=== PATIENT | female | born 1940 | race Caucasian/White ===

== ENCOUNTER → 2019-07-15 | Outpatient (CLI) | payer MEDICARE, MEDICAID ==
[2019-07-15 15:41] LABS: ALBUMIN 3.8 g/dL (3.4-5.0); ALBUMIN/GLOBULIN RATIO 1.2 (1.0-1.7); CALCIUM 9.1 mg/dL (8.5-10.1); CREATININE 0.6 mg/dL (0.6-1.0); GFR 96.9; POTASSIUM 3.7 mmol/L (3.5-5.1); TOTAL BILIRUBIN 0.6 mg/dL (0.2-1.0); TOTAL PROTEIN 6.9 g/dL (6.4-8.2)
== END | disposition home or self-care (01) ==
LOC: LAB 14:35
PROVIDERS: ATTEND Nurse Practitioner
DX: I71.2 Thoracic aortic aneurysm, without rupture (principal)
CPT/HCPCS: 36415; 80053; 80061

== ENCOUNTER 2020-12-16 21:29 | Emergency (ER) | payer MEDICARE, MEDICAID ==
[~2020-12-16] VITALS: Ht 160 cm; Wt 103.3 kg
--- NOTE | 2020-12-16 21:33 | PHYS DOC ---
Past History Past Medical History: Anxiety, Arthritis, Bronchitis, CAD, Diverticulitis, High Cholesterol, Hypertension, Sciatica Past Surgical History: Lumbar Laminectomy, Other Past Surgical History Bilateral shoulder repairs General Adult HPI: HPI: ".. I got some bad abdomen pain.. and so bad .. I am short of breath.. It down here on Rt... I ve had diverticulosis and diverticulitis in the past.,...I got chest pain.. I just get pain all over.. " Patient is a 80 year old female who presents with above hx and complaints of severe Rt. lower abdomen pain. Pt. denies hx of kidney stones . Has had episodes of diverticulitis. Multiple abdoomen surgeries.. The patient follows with Dr. Sanders. Patient has had Covid Moderna vaccination in October. Patient denies any trauma. Patient denies any specific ill contacts. Patient denies any change in diet or meds. Patient denies any recent travel outside the [place] area. Patient reports had multiple work-ups for her abdomen pain recently with no specific findings. Patient normally follows at [facility]. Review of Systems: Review of Systems: Constitutional: Denies fever or chills Eyes: Denies change in visual acuity HENT: Denies nasal congestion or sore throat Respiratory: Denies cough or shortness of breath Cardiovascular: Complains of epigastric chest pain and ankle edema GI: Complains of epigastric abdominal pain, nausea,. Denies vomiting, bloody stools or diarrhea : Denies dysuria Musculoskeletal: Complains of back pain and generalized joint pain Integument: Denies rash Neurologic: Denies headache, focal weakness or sensory changes Endocrine: Denies polyuria or polydipsia Lymphatic: Denies swollen glands Psychiatric: Denies depression or anxiety Family History: Family History: Noncontributory to presentation Current Medications: Current Meds: See nursing for home meds Allergies: Allergies: No known drug allergies Physical Exam: PE: Constitutional: Reports severe acute distress, non-toxic appearance. [] HENT: Normocephalic, atraumatic, bilateral external ears normal, oropharynx moist, no oral exudates, nose normal. [] Eyes: PERRLA, EOMI, conjunctiva normal, no discharge. [] Neck: Normal range of motion, no tenderness, supple, no stridor. Kyphosis. Cardiovascular:Heart rate irregular rhythm, no murmur [PMI to the left. Monitor shows a sinus rhythm with occasional PAC and PVC. Lungs & Thorax: Bilateral breath sounds equal apex with scattered wheezes on auscultation [] Abdomen: Bowel sounds normal, soft, right lower quadrant tenderness, no masses, no pulsatile masses. Obese. Old surgery scars. Mild rebound right lower quadrant Skin: Warm, dry, no erythema, no rash. Poor turgor. Back: No tenderness, no CVA tenderness. [] Extremities: No tenderness, no cyanosis, no clubbing, ROM intact, no edema. No true psoas sign. Bilateral surgery scars Neurologic: Alert and oriented X 3, moves extremities on request, does have distal sensory, no focal deficits noted. [] Psychologic: Affect anxious, judgement normal, mood normal. [] EKG: EKG: My interpretation EKG shows a sinus rhythm at 81 bpm does have premature atrial contractions, nonspecific contour changes anterior septal region. Abnormal EKG. Time of EKG 2132 hrs. My interpretation EKG #2 shows sinus rhythm at 88 bpm. Does have a PA disease and PVCs and short runs of bigeminy. Abnormal EKG time of this EKG is 00 20 minutes Radiology/Procedures: Radiology/Procedures: [][place] [address] IMAGING REPORT Signed PATIENT: GORDO LITTLE ACCOUNT: [id number] : 1940 LOCATION: ER AGE: 80 SEX: F EXAM STATUS: REG ER ORD. PHYSICIAN: JAMES LEY MD REASON: OMNI 240,30ML PO.RLQ ABD PAIN PROCEDURE: CT ABD PEL W/ORAL CONTRST ONLY INDICATION: Reason: OMNI 240,30ML PO.RLQ ABD PAIN / Spl. Instructions: / History: . COMPARISON: None. TECHNIQUE: Axial CT images obtained through the neck and pelvis without contrast. One or more of the following individualized dose reduction techniques were utilized for this examination: 1. Automated exposure control; 2. Adjustment of the mA and/or kV according to patient size; 3. Use of iterative reconstruction technique. FINDINGS: Coronary artery calcific atherosclerosis. Severe atherosclerosis throughout the abdominal aorta. No perihepatic hemorrhage. Distention of the extrahepatic bile duct. No peripancreatic fluid collection. Spleen unremarkable. Exophytic cystic lesion left kidney measuring 14 mm with adjacent tiny calcification or high density lesion. No hydronephrosis. Urinary bladder is decompressed. Exophytic lesion at the superior pole the right kidney measuring 18 mm which does not measure as entirely as simple cyst. Nonobstructive right renal stone. Colonic diverticulosis. Mild prominence of colon wall but this could be from lack of distention. Appendix is not well seen. Laxity of the anterior abdominal wall near midline with some loops of bowel seen extending between the rectus musculature. Postoperative changes are seen in the anterior abdominal wall at the region. Metallic density structure within the subcutaneous soft tissues at left flank. Degenerative changes spine. Osseous demineralization. Degenerative changes the hips. Grade 1 anterolisthesis of L3 on 4, L4 on 5 and L5 on S1. Posterior fusion changes with pedicle screws and stabilizing rods from L4 hypertrophic changes at the spinous processes. IMPRESSION: * No hydronephrosis. * No evidence of bowel obstruction. * Exophytic lesion of the right kidney which does not have the appearance of simple cyst. Nonemergent ultrasound, CT or MRI renal protocol could further assess for a solid component. * Calcific atherosclerosis. * Hypertrophic changes at the spinous processes. Would correlate for possible causes such as Baastrup. * Dilatation of the common bile duct. This can be a physiologic finding but would correlate with symptoms and lab markers to ensure there is not a pathologic cause such as a distal stricture or stone. Electronically signed by: Sd Montero MD (12/17/2020 1:08 AM) [id number] DICTATED AND SIGNED BY: SD MONTERO MD DATE: 12/17/20 0055 CC: JAMES LEY MD; STANLEY SANDERS MD ~MTH0 IMAGING REPORT Signed PATIENT: GORDO LITTLE ACCOUNT: [id number] : 1940 LOCATION: ER AGE: 80 SEX: F EXAM STATUS: REG ER ORD. PHYSICIAN: JAMES LEY MD REASON: pain PROCEDURE: ACUTE ABDOMEN SERIES Acute Abdominal Series: 12/16/2020 10:24 PM Reason for study: Pain Comparison studies: None. Technique: Frontal view of the chest was obtained along with supine and upright views of the abdomen. Findings: Nonobstructive bowel gas pattern. Mild wall thickening involving the small bowel loops in the left upper abdomen suggestive of jejunal bowel loops. No air fluid levels or free air. The lungs are clear without acute consolidative opacity.. Chronic interstitial changes are present. No pleural effusion or pneumothorax. The cardiac and mediastinal contours are normal. Tortuous thoracic aorta. Visualized osseous structures are intact. Rotator cuff anchors identified along the humeral heads bilaterally. There is S-shaped curvature of the thoracolumbar spine with posterior fusion hardware from L4 through S1. Sacroiliac joints are well aligned. IMPRESSION: 1. Nonobstructed bowel gas pattern. Mild jejunal wall thickening in the left upper quadrant could represent enteritis of infectious/inflammatory etiology. 2. No acute cardiopulmonary findings. Electronically signed by: Conor Lynne MD (12/16/2020 11:22 PM) [facility] DICTATED AND SIGNED BY: CONOR LYNNE MD DATE: 12/16/20 4588 CC: JAMES LEY MD; STANLEY SANDERS MD ~MTH0 0 Heart Score: C/O Chest Pain: Yes HEART Score for Chest Pain: HEART Score for Chest Pain Response (Comments) Value History Moderately Suspicious 1 ECG Nonspecific Repolarizatio 1 Age > 65 2 Risk Factors 1 or 2 Risk Factors 1 Troponin < Normal Limit 0 Total 5 Risk Factors: Risk Factors: DM, Current or recent (<one month) smoker, HTN, HLP, family history of CAD, obesity. Risk Scores: Score 0 - 3: 2.5% MACE over next 6 weeks - Discharge Home Score 4 - 6: 20.3% MACE over next 6 weeks - Admit for Clinical Observation Score 7 - 10: 72.7% MACE over next 6 weeks - Early Invasive Strategies Course & Med Decision Making: Course & Med Decision Making Pertinent Labs and Imaging studies reviewed. (See chart for details) Patient in approximately 130 hours requesting discharge. Refusing admission at this time. Will follow up with Dr. Sanders. Does have an appointment today. Patient take meds as previous directed. Patient return if any concerns. Impression: 1. Abdomen pain 2. Chest pain 3. Chronic back pain 4. Baastrup disease [] Dragon Disclaimer: Dragon Disclaimer: This electronic medical record was generated, in whole or in part, using a voice recognition dictation system. Departure Departure: Referrals: STANLEY SANDERS MD (PCP) Joaquim Disclaimer This chart was dictated in whole or in part using Voice Recognition software in a busy, high-work load, and often noisy Emergency Department environment. It may contain unintended and wholly unrecognized errors or omissions. Dragon Disclaimer This chart was dictated in whole or in part using Voice Recognition software in a busy, high-work load, and often noisy Emergency Department environment. It may contain unintended and wholly unrecognized errors or omissions. JAMES LEY MD Dec 16, 2020 21:33
[2020-12-16 22:09] LABS: BASO % 1 % (0-3); EOS % 0 % (0-3); HEMATOCRIT 42.3 % (36.0-47.0); HEMOGLOBIN 14.5 g/dL (12.0-15.5); LYMPH # 1.3 x10^3/uL (1.0-4.8); LYMPH % 20 % (24-48); MEAN CORPUSCULAR HEMOGLOBIN 33 pg (25-35); MEAN CORPUSCULAR HGB CONC 34 g/dL (31-37); MEAN CORPUSCULAR VOLUME 97 fL (79-100); MONO # 0.5 x10^3/uL (0.0-1.1); MONO % 8 % (0-9); NEUT # 4.4 x10^3uL (1.8-7.7); NEUT % 71 % (31-73); PLATELET COUNT 197 x10^3/uL (140-400); RED BLOOD COUNT 4.37 x10^6/uL (3.50-5.40); RED CELL DISTRIBUTION WIDTH 13.2 % (11.5-14.5); WHITE BLOOD COUNT 6.3 x10^3/uL (4.0-11.0)
[2020-12-16] MEDS ORDERED: KETOROLAC 30 MG/ML VIAL. ONE (22:13)
[2020-12-16] MEDS: IV RINGERS SOLUTION,LACTATED 1,000 ML IV SCH (22:15)
[2020-12-16 22:19] LABS: CALCIUM 9.1 mg/dL (8.5-10.1); CREATININE 0.7 mg/dL (0.6-1.0); GFR 80.9; POTASSIUM 3.4 mmol/L (3.5-5.1)
[2020-12-16 22:26] LABS: DIRECT BILIRUBIN 0.2 mg/dL (0.0-0.2); MAGNESIUM 2.1 mg/dL (1.8-2.4); TOTAL BILIRUBIN 0.4 mg/dL (0.2-1.0); TOTAL PROTEIN 7.1 g/dL (6.4-8.2)
[2020-12-16] MEDS ORDERED: MORPHINE SULFATE 10 MG/ML SYRINGE. SQ ONE (22:30)
[2020-12-16] MEDS ORDERED: IOHEXOL 300 MG/ML 75 ML VIAL. IV ONE (22:30)
[2020-12-16] MEDS ORDERED: KETOROLAC 30 MG/ML VIAL. IVP ONE (22:30)
[2020-12-16] MEDS ORDERED: IOHEXOL 240 MG/ML 50ML VIAL. ONE (22:37)
--- NOTE | 2020-12-16 23:24 | RAD ---
Acute Abdominal Series: 12/16/2020 10:24 PM Reason for study: Pain Comparison studies: None. Technique: Frontal view of the chest was obtained along with supine and upright views of the abdomen. Findings: Nonobstructive bowel gas pattern. Mild wall thickening involving the small bowel loops in the left up per abdomen suggestive of jejunal bowel loops. No air fluid levels or free air. The lungs are clear without acute consolidative opacity.. Chronic interstitial changes are present. N o pleural effusion or pneumothorax. The cardiac and mediastinal contours are normal. Tortuous thoraci c aorta. Visualized osseous structures are intact. Rotator cuff anchors identified along the humeral heads adalid aterally. There is S-shaped curvature of the thoracolumbar spine with posterior fusion hardware from L4 through S1. Sacroiliac joints are well aligned. IMPRESSION: 1. Nonobstructed bowel gas pattern. Mild jejunal wall thickening in the left upper quadrant could rep resent enteritis of infectious/inflammatory etiology. 2. No acute cardiopulmonary findings. Electronically signed by: Tiffanie Nichols MD (12/16/2020 11:22 PM) [facility]
[2020-12-16 23:38] LABS: AMPHETAMINE/METHAMPHETAMINE NEG (NEG); BARBITURATES NEG (NEG); BENZODIAZEPINES POS (NEG); CANNABINOIDS NEG (NEG); COCAINE NEG (NEG); METHADONE NEG (NEG); OPIATES POS (NEG); PHENCYCLIDINE NEG (NEG)
[2020-12-16 23:45] LABS: BILIRUBIN,URINE NEG (NEG); CLARITY,URINE CLEAR; COLOR,URINE YELLOW; GLUCOSE,URINE NEG (NEG)
[2020-12-16 23:46] LABS: BACTERIA,URINE 0 /HPF (0-FEW); NITRITE,URINE NEG (NEG); RBC,URINE 0 /HPF (0-2); SQUAMOUS EPITHELIAL CELL,UR OCC /LPF; UROBILINOGEN,URINE 0.2 mg/dL (0.2 mg/dL); WBC,URINE 0 /HPF (0-4)
[2020-12-17] MEDS ORDERED: FAMOTIDINE 20 MG/2 ML VIAL IVP ONE (00:30)
[2020-12-17] MEDS ORDERED: CONTRAST GIVEN. MC PRN (00:30)
[2020-12-17] MEDS ORDERED: MAGNESIUM HYDROXIDE 2,400 MG/30 ML ORAL.SUSP. PO ONE (01:00)
--- NOTE | 2020-12-17 01:11 | RAD ---
INDICATION: Reason: OMNI 240,30ML PO.RLQ ABD PAIN / Spl. Instructions: / History: . COMPARISON: None. TECHNIQUE: Axial CT images obtained through the neck and pelvis without contrast. One or more of the following individualized dose reduction techniques were utilized for this examinat ion: 1. Automated exposure control; 2. Adjustment of the mA and/or kV according to patient size; 3 . Use of iterative reconstruction technique. FINDINGS: Coronary artery calcific atherosclerosis. Severe atherosclerosis throughout the abdominal aorta. No perihepatic hemorrhage. Distention of the extrahepatic bile duct. No peripancreatic fluid collection. Spleen unremarkable. Exophytic cystic lesion left kidney measuring 14 mm with adjacent tiny calcification or high density lesion. No hydronephrosis. Urinary bladder is decompressed. Exophytic lesion at the superior pole the right kidney measuring 18 mm which does not measure as entirely as simple cyst. Nonobstructive right renal stone. Colonic diverticulosis. Mild prominence of colon wall but this could be from lack of distention. Appendix is not well seen. Laxity of the anterior abdominal wall near midline with some loops of orestes l seen extending between the rectus musculature. Postoperative changes are seen in the anterior abdom inal wall at the region. Metallic density structure within the subcutaneous soft tissues at left flank. Degenerative changes spine. Osseous demineralization. Degenerative changes the hips. Grade 1 anterolisthesis of L3 on 4, L4 on 5 and L5 on S1. Posterior fusion changes with pedicle screw s and stabilizing rods from L4 hypertrophic changes at the spinous processes. IMPRESSION: * No hydronephrosis. * No evidence of bowel obstruction. * Exophytic lesion of the right kidney which does not have the appearance of simple cyst. Nonemergen t ultrasound, CT or MRI renal protocol could further assess for a solid component. * Calcific atherosclerosis. * Hypertrophic changes at the spinous processes. Would correlate for possible causes such as Baastru p. * Dilatation of the common bile duct. This can be a physiologic finding but would correlate with sym ptoms and lab markers to ensure there is not a pathologic cause such as a distal stricture or stone. Electronically signed by: Ajay Montero MD (12/17/2020 1:08 AM) [id number]
[2020-12-17] MEDS: IV RINGERS SOLUTION,LACTATED 1,000 ML IV SCH (01:28)
[2020-12-17 01:45] VITALS: BP 156/80
--- NOTE | 2020-12-17 03:04 | EKG ---
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
--- NOTE | 2020-12-17 03:05 | EKG ---
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 (Measurements might be questionable) RI6.02 No previous ECG available for comparison
--- NOTE | 2020-12-17 03:06 | EKG ---
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
[2020-12-17 15:58] LABS: THYROID STIM HORMONE (TSH) 2.178 uIU/mL (0.358-3.740)
== END 2020-12-17 01:50 | disposition home or self-care (01) ==
LOC: ER 21:29
DX: R10.13 Epigastric pain (principal); R07.89 Other chest pain; G89.29 Other chronic pain; M48.20 Kissing spine, site unspecified; F41.9 Anxiety disorder, unspecified; M19.90 Unspecified osteoarthritis, unspecified site; I25.10 Atherosclerotic heart disease of native coronary artery without angina pectoris; E78.00 Pure hypercholesterolemia, unspecified; I10 Essential (primary) hypertension
CPT/HCPCS: 36415; 74022; 74176; 80048; 80061; 80076; 80307; 81001; 82150; 82550; 83690; 83735; 84443; 84484; 85025; 85379; 85610; 85730; 93005; 96361; 96372; 96374; 99285; J1885; J2270; J3490; J7120

== ENCOUNTER → 2020-12-30 | Outpatient (CLI) | payer MEDICARE, MEDICAID ==
[2020-12-17 01:45] VITALS: BP 156/80
--- NOTE | 2020-12-30 14:58 | RAD ---
EXAM: RENAL ULTRASOUND CLINICAL HISTORY: Reason: ABNORMAL CT, left kidney lesion COMPARISON: CT abdomen pelvis and chest December 16, 2020 TECHNIQUE: Ultrasound examination of the bilateral kidneys and urinary bladder was performed. FINDINGS: The right kidney measures 10.6 x 4.7 x 5.2 cm in bipolar length. The renal cortex is normal in thickn ess. Renal echogenicity is normal. There is no evidence for hydronephrosis, shadowing renal calculus or focal abnormality . The left kidney measures 10.2 x 4.1 x 5.5 cm in bipolar length. The renal cortex is normal in thickne ss. Renal echogenicity is normal. There is no evidence for hydronephrosis or shadowing renal calculus . 1.9 x 1.1 x 2.2 cm hypoechoic lesion at the superior aspect of the left kidney appears nonvascular. Images of the nondistended filled urinary bladder are unremarkable. The IVC is poorly visualized. The aorta is without aneurysmal dilatation where visualized. IMPRESSION: 1. There is a 2.2 x 1.9 cm hypoechoic nodule adjacent to the left kidney and spleen is not definitely a cyst. This may represent a small splenule, however diagnosis remains indeterminate on this ultraso und. Splenic scintigraphy could be valuable in determining whether this lesion is truly splenic in or igin. Alternatively, a follow-up renal mass protocol CT or MRI could be obtained based on clinical paz spicion. 2. Please note there is also an exophytic low-density renal lesion of the superior right kidney which was not seen on this renal ultrasound. Electronically signed by: Aman See (12/30/2020 2:55 PM) [id number]
== END ==
LOC: US 10:42
PROVIDERS: ATTEND Specialist
DX: R93.49 Abnormal radiologic findings on diagnostic imaging of other urinary organs (principal); N28.9 Disorder of kidney and ureter, unspecified
CPT/HCPCS: 76770

== ENCOUNTER 2021-02-06 12:13 | Emergency (ER) | payer MEDICARE, MEDICAID ==
[~2021-02-06] VITALS: Ht 160 cm; Wt 78.0 kg
[2021-02-06 12:28] VITALS: BP 179/89
[2021-02-06] MEDS ORDERED: IV NORMAL SALINE 1,000ML 1,000 ML IV ONE (12:30)
[2021-02-06] MEDS ORDERED: ONDANSETRON PF 4 MG/2 ML VIAL. IVP ONE (12:30)
--- NOTE | 2021-02-06 12:43 | PHYS DOC ---
Past History Past Medical History: Anxiety, Arthritis, Bronchitis, CAD, Diverticulitis, High Cholesterol, Hypertension, Sciatica Additional Past Medical Histor: back pain, degenerative joint disease Past Surgical History: Hysterectomy, Lumbar Laminectomy, Other Additional Past Surgical Histo: back surg x2 Alcohol Use: None General Adult EDM: Chief Complaint: NAUSEA/VOMITING/DIARRHEA HPI: HPI: 80-year-old female presents with nausea, vomiting, and abdominal pain. Patient started having lower pelvic abdominal pain and vomiting last night. She had multiple episodes overnight. She now has some epigastric pain as well as her lower pain. The patient usually takes gabapentin for her neuropathy but she has been vomiting it back up. She feels like she is having neuropathy pain in her bilateral lower and upper extremities. Denies fever or chills. Review of Systems: Review of Systems: Constitutional: Denies fever or chills Eyes: Denies change in visual acuity HENT: Denies nasal congestion or sore throat Respiratory: Denies cough or shortness of breath Cardiovascular: Denies chest pain or edema GI: Lower pelvic and epigastric abdominal pain, nausea, vomiting. Denies bloody stools or diarrhea : Vaginal pain Musculoskeletal: Denies back pain or joint pain Integument: Denies rash Neurologic: Neuropathic pain. Denies headache, focal weakness or sensory changes Endocrine: Denies polyuria or polydipsia Lymphatic: Denies swollen glands Psychiatric: Denies depression or anxiety Current Medications: Current Meds: Current Medications Medications (Trade) Dose Ordered Sig/Dany Start Time Stop Time Status Last Admin Dose Admin Ondansetron HCl (Zofran) 4 mg 1X ONCE 02/06/21 12:30 02/06/21 12:33 DC Sodium Chloride 1,000 ml @ 1,000 mls/hr 1X ONCE 02/06/21 12:30 02/06/21 13:29 Allergies: Allergies: Allergies Coded Allergies Type Severity Reaction Last Updated Verified No Known Drug Allergies 02/06/21 No Physical Exam: PE: Constitutional: Well developed, well nourished, mild acute distress, non-toxic appearance. [] HENT: Normocephalic, atraumatic, bilateral external ears normal, oropharynx moist, no oral exudates, nose normal. [] Eyes: PERRLA, EOMI, conjunctiva normal, no discharge. [] Neck: Normal range of motion, no tenderness, supple, no stridor. [] Cardiovascular: Heart rate regular rhythm, no murmur [] Lungs & Thorax: Bilateral breath sounds clear to auscultation [] Abdomen: Bowel sounds normal, soft, epigastric tenderness, no masses, no pulsatile masses. [] Skin: Warm, dry, no erythema, no rash. [] Back: No tenderness, no CVA tenderness. [] Extremities: No tenderness, no cyanosis, no clubbing, ROM intact, no edema. [] Neurologic: Alert and oriented X 3, normal motor function, normal sensory function, no focal deficits noted. [] Psychologic: Affect normal, judgement normal, mood normal. [] Current Patient Data: Vital Signs: Vital Signs Date Time Temp Pulse Resp B/P (MAP) Pulse Ox O2 Delivery O2 Flow Rate FiO2 02/06/21 12:28 98.1 100 22 179/89 96 Room Air EKG: EKG: Sinus rhythm, rate 87, normal axis, no ST elevation or depression. [] Radiology/Procedures: Radiology/Procedures: [] Impressions: Exam Date: 02/06/2021 1:[address] ABDOMEN+PELVIS W Indication: Reason: lower abdominal pain / Spl. Instructions: OMNI 350 75ML, GFR >60ml / History: . TECHNIQUE: CT examination of the abdomen and pelvis was performed following the administration of nonionic intravenous contrast. One or more of the following dose reduction techniques were utilized: *Automated exposure control (AEC) *Adjustment of mA and/or kV according to patient size *Use of iterative reconstruction technique *CT scan done according to ALARA, or ALARA/IMAGE GENTLY COMPARISON: CT from December 17, 2020. Ultrasound from December 30, 2020 FINDINGS: The visualized lung bases are clear. Suspected postoperative changes of gastrojejunostomy are noted in the upper abdomen. Status post cholecystectomy with dilatation the common bile duct up to 14 mm. There is a 1.7 cm hypodensity in the right kidney measuring 32 Hounsfield units, nonspecific. Small right renal pelvis calcification may be vascular or could represent a small nonobstructing calculus. No hydronephrosis. There are left renal cysts and too small to characterize hypodensities. The liver, spleen, pancreas, adrenal glands and kidneys are otherwise normal. Urinary bladder is suboptimally evaluated due to underdistention without focal abnormality. Diverticulosis coli is seen without bowel obstruction or inflammation. No evidence for acute appendicitis. Severe atherosclerotic calcifications are seen. No lymphadenopathy or ascites is seen. Degenerative and postoperative changes are seen in the spine. IMPRESSION: No evidence of acute intra-abdominal pathology. Indeterminate hypodensity in the right kidney may represent a hyperdense cyst. This lesion was not identified on the prior renal ultrasound from December 30, 2020, but was present on the prior CT from December 17, 2020. A follow-up nonemergent renal ultrasound is recommended. Status post cholecystectomy with dilatation the common bile duct. Electronically signed by: Gillian Schilling MD (02/06/2021 2:08 PM) [facility] DICTATED AND SIGNED BY: GILLIAN SCHILLING MD DATE: 02/06/21 [id number] CC: LYLA MUNOZ DO; STANLEY SANDERS MD ~MTH0 0 Heart Score: C/O Chest Pain: N/A Risk Factors: Risk Factors: DM, Current or recent (<one month) smoker, HTN, HLP, family history of CAD, obesity. Risk Scores: Score 0 - 3: 2.5% MACE over next 6 weeks - Discharge Home Score 4 - 6: 20.3% MACE over next 6 weeks - Admit for Clinical Observation Score 7 - 10: 72.7% MACE over next 6 weeks - Early Invasive Strategies Course & Med Decision Making: Course & Med Decision Making Pertinent Labs and Imaging studies reviewed. (See chart for details) The patient's EKG is unremarkable. The patient's labs are unremarkable. Her CT scan is negative for acute findings. I have given the patient fentanyl and Dilaudid for her pain. She is also gotten Zofran and Compazine for her nausea. Patient's nausea and vomiting is now controlled. Her pain has improved. I do not know what is causing the patient's pain. She states that she does not understand that either. Her previous work-ups have not shown anything significant. I manipulated her right hip under pressure and she has some discomfort. I wonder if this could be a hip pathology disguised as lower pelvic pain. I have advised that she consider this and follow-up with her primary physician. I did look at the patient's pubic area with the nurse escort. There were no obvious lesions. No pain with palpation. She is stable for discharge at this time. [] Joaquim Disclaimer: Dragsnehal Disclaimer: This electronic medical record was generated, in whole or in part, using a voice recognition dictation system. Departure Departure: Impression: Primary Impression: Right lower quadrant abdominal pain Additional Impression: Nausea and vomiting Qualified Codes: R11.2 - Nausea with vomiting, unspecified Disposition: HOME / SELF CARE / HOMELESS Condition: STABLE Referrals: STANLEY SANDERS MD (PCP) Scripts Prochlorperazine Maleate (Compazine) 10 Mg Tablet 1 TAB PO Q6HRS PRN for NAUSEA/VOMITING for 7 Days, #28 TAB 0 Refills Prov: LYLA MUNOZ DO 02/06/21 Ondansetron (ONDANSETRON ODT) 4 Mg Tab.rapdis 1 TAB PO PRN Q6-8HRS PRN for VOMITING, #16 TAB Prov: LYLA MUNOZ DO 02/06/21 LYLA MUNOZ DO Feb 06, 2021 12:43
[2021-02-06 12:46] LABS: BASO % 0 % (0-3); EOS % 0 % (0-3); HEMATOCRIT 40.2 % (36.0-47.0); HEMOGLOBIN 13.9 g/dL (12.0-15.5); LYMPH # 0.8 x10^3/uL (1.0-4.8); LYMPH % 12 % (24-48); MEAN CORPUSCULAR HEMOGLOBIN 33 pg (25-35); MEAN CORPUSCULAR HGB CONC 35 g/dL (31-37); MEAN CORPUSCULAR VOLUME 97 fL (79-100); MONO # 0.5 x10^3/uL (0.0-1.1); MONO % 8 % (0-9); NEUT # 5.2 x10^3uL (1.8-7.7); NEUT % 80 % (31-73); PLATELET COUNT 255 x10^3/uL (140-400); RED BLOOD COUNT 4.16 x10^6/uL (3.50-5.40); RED CELL DISTRIBUTION WIDTH 13.5 % (11.5-14.5); WHITE BLOOD COUNT 6.6 x10^3/uL (4.0-11.0)
[2021-02-06] MEDS ORDERED: IOHEXOL 300 MG/ML 75 ML VIAL. IV ONE (13:00)
[2021-02-06] MEDS ORDERED: CONTRAST GIVEN. MC PRN (13:00)
--- NOTE | 2021-02-06 13:10 | EKG ---
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
[2021-02-06 13:16] LABS: CALCIUM 9.5 mg/dL (8.5-10.1); CREATININE 0.6 mg/dL (0.6-1.0); GFR 96.7; POTASSIUM 3.4 mmol/L (3.5-5.1)
[2021-02-06 13:18] LABS: ALBUMIN 4.1 g/dL (3.4-5.0); ALBUMIN/GLOBULIN RATIO 1.3 (1.0-1.7); TOTAL BILIRUBIN 0.9 mg/dL (0.2-1.0); TOTAL PROTEIN 7.2 g/dL (6.4-8.2)
[2021-02-06] MEDS ORDERED: PROCHLORPERAZINE 10 MG/2 ML VIAL. ONE (13:25)
[2021-02-06 13:37] LABS: BILIRUBIN,URINE SMALL (NEG); CLARITY,URINE TURBID; COLOR,URINE AMBER; GLUCOSE,URINE NEG (NEG)
[2021-02-06 13:38] LABS: AMORPHOUS SEDIMENT,UR PRESENT /HPF; BACTERIA,URINE FEW /HPF (0-FEW); NITRITE,URINE NEG (NEG); RBC,URINE 0 /HPF (0-2); SQUAMOUS EPITHELIAL CELL,UR MANY /LPF; WBC,URINE 0 /HPF (0-4)
[2021-02-06] MEDS ORDERED: HYDROmorphone PF 1 MG/ML DISP.SYRIN IVP ONE (13:45)
--- NOTE | 2021-02-06 14:11 | RAD ---
Exam Date: 02/06/2021 1:[address] ABDOMEN+PELVIS W Indication: Reason: lower abdominal pain / Spl. Instructions: OMNI 350 75ML, GFR >60ml / History: . TECHNIQUE: CT examination of the abdomen and pelvis was performed following the administration of no nionic intravenous contrast. One or more of the following dose reduction techniques were utilized: *Automated exposure control (AEC) *Adjustment of mA and/or kV according to patient size *Use of iterative reconstruction technique *CT scan done according to ALARA, or ALARA/IMAGE GENTLY COMPARISON: CT from December 17, 2020. Ultrasound from December 30, 2020 FINDINGS: The visualized lung bases are clear. Suspected postoperative changes of gastrojejunostomy are noted in the upper abdomen. Status post cho lecystectomy with dilatation the common bile duct up to 14 mm. There is a 1.7 cm hypodensity in the right kidney measuring 32 Hounsfield units, nonspecific. Small right renal pelvis calcification may be vascular or could represent a small nonobstructing calculus. No hydronephrosis. There are left r enal cysts and too small to characterize hypodensities. The liver, spleen, pancreas, adrenal glands and kidneys are otherwise normal. Urinary bladder is suboptimally evaluated due to underdistention without focal abnormality. Diverticulosis coli is seen without bowel obstruction or inflammation. No evidence for acute appendi citis. Severe atherosclerotic calcifications are seen. No lymphadenopathy or ascites is seen. Degenerative and postoperative changes are seen in the spine. IMPRESSION: No evidence of acute intra-abdominal pathology. Indeterminate hypodensity in the right kidney may represent a hyperdense cyst. This lesion was not i dentified on the prior renal ultrasound from December 30, 2020, but was present on the prior CT from December 17, 2020. A follow-up nonemergent renal ultrasound is recommended. Status post cholecystectomy with dilatation the common bile duct. Electronically signed by: Stanley Schilling MD (02/06/2021 2:08 PM) [facility]
--- NOTE | 2021-02-06 14:16 | RAD ---
XR CHEST 1V INDICATION: abd pain COMPARISON STUDY: 09/07/2009. FINDINGS: Lungs: Normal lung volume. No consolidation. Linear subsegmental atelectasis. The tracheobronchial tr ee and hilar structures are normal. Pleura: No pleural effusion or pneumothorax. Heart and Mediastinum: Cardiomegaly. The great vessels of the thorax are normal. IMPRESSION: No acute cardiopulmonary process. Electronically signed by: Jewel Moreira MD (02/06/2021 2:13 PM) [facility] CENTERChristina
[2021-02-06] MEDS ORDERED: PROC10TA57 PO (14:26)
[2021-02-06] MEDS ORDERED: ONDA4TAB12 PO (14:26)
== END 2021-02-06 14:40 | disposition home or self-care (01) ==
LOC: ER 12:13
DX: R10.31 Right lower quadrant pain (principal); R11.2 Nausea with vomiting, unspecified; R10.13 Epigastric pain; M19.90 Unspecified osteoarthritis, unspecified site; I25.10 Atherosclerotic heart disease of native coronary artery without angina pectoris; E78.00 Pure hypercholesterolemia, unspecified; I10 Essential (primary) hypertension; F41.9 Anxiety disorder, unspecified; Z20.822 Contact with and (suspected) exposure to COVID-19
CPT/HCPCS: 36415; 71045; 74177; 80053; 81001; 84484; 85025; 93005; 96361; 96374; 96375; 99285; C9803; J1170; J2405; J3010; J7030; Q9967; U0003

== ENCOUNTER → 2021-02-24 | Outpatient (CLI) | payer MEDICARE, MEDICAID ==
[2021-02-06 12:28] VITALS: BP 179/89
[~2021-02-24] MED LIST: ONDA4TAB12 PO; PROC10TA57 PO
--- NOTE | 2021-02-24 17:27 | RAD ---
US RENAL BILAT History: Reason: LT KIDNEY LESION / Spl. Instructions: / History: Comparison: CT February 06, 2021. Ultrasound December 30, 2020. Procedure: Transabdominal ultrasound images are obtained of the kidneys and bladder. Findings: Right kidney: Degraded evaluation of the right kidney due to overlying structures. Measures 9.9 x 5.0 x 5.1 cm. Previously identified renal lesion is not well evaluated on ultrasound. No hydronephrosis . Left kidney: measures 8.8 x 4.2 x 5.8 cm. Multiple small cysts largest measures 1.7 x 1.4 x 1.3 cm s uperior pole exophytic. No hydronephrosis. Urinary bladder: No urinary bladder wall thickening. Bilateral ureteral jets not identified during ti me of imaging. Aorta and IVC not well seen due to technique. Increased hepatic echotexture. IMPRESSION: 1. RIGHT renal lesion not well evaluated on ultrasound. Recommend multiphasic CT or MRI to further e valuate. 2. Unchanged LEFT superior renal exophytic cyst. Electronically signed by: Valdo Wong DO (02/24/2021 5:24 PM) [id number]
== END ==
LOC: US 14:46
PROVIDERS: ATTEND Internal Medicine
DX: N28.1 Cyst of kidney, acquired (principal); N28.89 Other specified disorders of kidney and ureter
CPT/HCPCS: 76770

== ENCOUNTER → 2021-08-18 | Outpatient (CLI) | payer MEDICARE, MEDICAID ==
[~2021-08-18] MED LIST changes: +IOHEXOL 300 MG/ML 75 ML VIAL. IV ONE
[2021-08-18 08:36] LABS: CREATININE 0.9 mg/dL (0.6-1.0); GFR 60.4
--- NOTE | 2021-08-18 12:15 | RAD ---
EXAM: Abdomen CT with and without intravenous contrast. HISTORY: Renal lesion. TECHNIQUE: Computed tomographic images of the abdomen were obtained prior to and following the admini stration of intravenous contrast. Multiplanar reformatting was performed. *One or more of the following individualized dose reduction techniques were utilized for this examina tion: 1. Automated exposure control. 2. Adjustment of the mA and/or kV according to patient size. 3. Use of iterative reconstruction technique. COMPARISON: 02/06/2021. FINDINGS: Evaluation of the lower thorax demonstrates medial right middle lobe pleural parenchymal sc arring. There are tiny benign groundglass nodular opacities within the lateral left lower lobe, likel y postinfectious or postinflammatory. No suspicious nodule is seen. There is no infiltrate. There is hepatomegaly and hepatic steatosis. No suspicious hepatic lesion is seen. The gallbladder is absent. There is common bile duct dilatation likely due to reservoir effect status post cholecystect lu. There is also a prominent downstream pancreatic duct likely due to reservoir effect. No pancreat ic lesion is seen. The spleen is upper normal in size. The adrenal glands are unremarkable. There is a 4 mm nonobstructing stone or vascular calcification within the superior right kidney. Ther e is no hydronephrosis. There is a 1.8 cm hemorrhagic cyst within the upper pole of the right kidney is hyperdense on precontrast images. There is a 3 mm cortical cyst within the lateral upper mid zone of the right kidney. There is a 3 mm cortical cyst within the posterior lower mid zone of the right k idney. There are adjacent cysts within the upper pole the left kidney measuring 1.2 cm and 1.5 cm. Th ere is a cortical cyst within the lateral upper pole the left kidney measuring 1.0 cm. There is a cor tical cyst within the anterior mid zone of the left kidney measuring 1.0 cm. There is a 3 mm lateral left renal cortical cyst. There is mild left renal cortical scarring. No solid renal lesion is seen. There is no bowel obstruction. There is colonic diverticulosis. There is suture material within the v entral abdominal wall due to a prior laparotomy. There is aortic and aortic branch vessel atheroscler osis. This involves the origins of the renal arteries. There is instrumented posterior spinal fusion and laminectomy decompression at the lower lumbar levels. There is multilevel listhesis and scoliosis and hyperlordosis involving the lumbar spine. There is no acute or suspicious osseous finding. IMPRESSION: 1. Multiple bilateral renal cysts, one of which within the upper pole the right kidney measures 1.8 c m and is likely hemorrhagic. No suspicious solid renal lesion is seen. 2. 4 mm nonobstructing stone or vascular calcification within the superior right kidney. 3. Hepatomegaly and hepatic steatosis. 4. Biliary and downstream pancreatic ductal dilatation likely due to reservoir effect. 5. Colonic diverticulosis. 6. Degenerative and postoperative change involving the lumbar spine, not formally assessed on this ex am. Electronically signed by: Claudia Moreno MD (08/18/2021 12:12 PM) [id number]
== END ==
LOC: CT 07:52
PROVIDERS: ATTEND Specialist
DX: C67.0 Malignant neoplasm of trigone of bladder (principal); N20.0 Calculus of kidney; N28.1 Cyst of kidney, acquired; K57.30 Diverticulosis of large intestine without perforation or abscess without bleeding; R16.0 Hepatomegaly, not elsewhere classified; K76.0 Fatty (change of) liver, not elsewhere classified; M47.816 Spondylosis without myelopathy or radiculopathy, lumbar region; M43.16 Spondylolisthesis, lumbar region; M41.86 Other forms of scoliosis, lumbar region; Z90.49 Acquired absence of other specified parts of digestive tract; Z98.890 Other specified postprocedural states
CPT/HCPCS: 36415; 74170; 82565; 84520; Q9967